=== PATIENT | female | born 1985 | race Caucasian/White ===

== ENCOUNTER 2021-07-17 15:46 | Emergency (ER) | payer OTHER ==
[2021-07-17 15:57] VITALS: BP 134/75
[2021-07-17] MEDS ORDERED: IBUPROFEN 800 MG TABLET PO STA (16:07)
--- NOTE | 2021-07-17 16:45 | XRAY Report ---
PROCEDURE: Foot 3 View LT INDICATIONS: Trauma TECHNIQUE: 3 views of the foot were acquired. COMPARISON: None FINDINGS: Bones: No fractures or dislocations. No suspicious bony lesions. Soft tissues: No tibiotalar joint effusion. Achilles tendon appears normal. IMPRESSION: No acute left foot fracture or dislocation. Reviewed by: Nahid Eldridge MD on 07/17/2021 4:44 PM [facility] Approved by: aNhid Eldridge MD on 07/17/2021 4:44 PM [facility] Station ID: [id number]
--- NOTE | 2021-07-17 16:46 | XRAY Report ---
PROCEDURE: Ankle 3 View LT INDICATIONS: Trauma TECHNIQUE: 3 views of the ankle were acquired. COMPARISON: None FINDINGS: Bones: No fractures or dislocations. Ankle mortise is normally aligned. No suspicious bony lesions . Soft tissues: Mild lateral ankle soft tissue swelling is seen. Small tibiotalar joint effusion. Achi lles tendon appears normal. IMPRESSION: No acute ankle fracture or dislocation. Intact ankle mortise. Mild lateral ankle soft ti ssue swelling. Small tibiotalar joint effusion. Reviewed by: Nahid Eldridge MD on 07/17/2021 4:44 PM PST Approved by: Nahid Eldridge MD on 07/17/2021 4:44 PM PST Station ID: [id number]
--- NOTE | 2021-07-17 16:52 | ED Physician Documentation ---
PD HPI LOWER EXT INJURY - Stated complaint Stated Complaint: LT ANKLE PX/KICKED BY HORSE - Chief complaint Chief Complaint: Trauma Ext - History obtained from History obtained from: Patient - History of Present Illness PD HPI LOW EXT INJURY LOCATION: Left, Ankle Type of injury: Twist Where injury occurred: Work Timing - duration: Hours (1) Pain level max: 8 Pain level now: 5 Improved by: Rest, Ice, Immobilization Worsened by: Moving, Palpating Associated symptoms: No: Weakness, Numbness, Tingling, Swelling Contributing factors: No: Anticoagulated, Prior ortho surgery - Additional information Additional information: Patient is a 35-year-old female who presents to the emergency department with left ankle pain. She states that she works as a armored car guard and driver and was kicked by a horse. She felt a pop and twisted the left ankle. Worse with walking, better with rest. Review of Systems Constitutional: denies: Fever, Chills GI: denies: Vomiting Skin: denies: Rash PD PAST MEDICAL HISTORY - Past Medical History Past Medical History: No - Past Surgical History Past Surgical History: No - Allergies Allergies/Adverse Reactions: Allergies Allergy/AdvReac Type Severity Reaction Status Date / Time No Known Drug Allergies Allergy Verified 07/17/21 15:57 - Living Situation Living Arrangement: reports: At home - Social History Does the pt smoke?: No Does the pt drink ETOH?: No Does the pt have substance abuse?: No - Family History Family history: reports: Non contributory PD ED PE NORMAL - Vitals Vital signs reviewed: Yes - General General: Alert and oriented X 3, No acute distress - Derm Derm: Warm and dry - Extremities Extremities: Other (Tender to palpation over the lateral malleolus of the left ankle. No swelling. Neurovascularly intact. Otherwise normal examination of the foot and ankle. No tenderness over the fifth metatarsal.) - Neuro Neuro: Alert and oriented X 3 - Psych Psych: Normal mood, Normal affect Results - Vitals Vitals: Vital Signs - 24 hr 07/17/21 15:53 Temperature 36.8 C Heart Rate 82 Respiratory 16 Rate Blood Pressure 134/75 H O2 Saturation 100 Oxygen O2 Source Room air - Rads (name of study) Left ankle x-ray Radiology: Final report received, EMP read contemporaneously, See rad report (No acute abnormality) Left foot x-ray Radiology: Final report received, EMP read contemporaneously, See rad report (No acute abnormality) PD MEDICAL DECISION MAKING - ED course Complexity details: reviewed results, re-evaluated patient, considered differential, d/w patient ED course: No acute findings on x-ray of the left ankle or left foot. We will treat as a sprain. Placed in an air splint for comfort. Given crutches. Neurovascularly intact. Patient counseled regarding signs and symptoms for which I believe and urgent re-evaluation would be necessary. Patient with good understanding of and agreement to plan and is comfortable going home at this time This document was made in part using voice recognition software. While efforts are made to proofread this document, sound alike and grammatical errors may occur. Departure - Departure Disposition: 01 Home, Self Care Clinical Impression: Left ankle sprain Qualifiers: Encounter type: initial encounter Involved ligament of ankle: unspecified ligament Qualified Code(s): S93.402A - Sprain of unspecified ligament of left ankle, initial encounter Condition: Good Instructions: ED Sprain Ankle Follow-Up: Cayla Last MD [Primary Care Provider] - As Needed Comments: You may bear weight as tolerated. You can use Motrin or Tylenol as needed for pain. Return if you worsen. Your x-rays do not show any acute abnormalities today. Discharge Date/Time: 07/17/21 17:00
== END 2021-07-17 17:00 | disposition home or self-care (01) ==
LOC: ED 15:46
DX: S93.402A Sprain of unspecified ligament of left ankle, initial encounter (principal); W55.12XA Struck by horse, initial encounter
CPT/HCPCS: 73610; 73630; 99282; 99283; A9270